=== PATIENT | male | born 1990 | race Caucasian/White ===

== ENCOUNTER 2023-03-27 22:10 | Emergency (ER) | payer BC, SELFPAY ==
[2023-03-27 22:22] VITALS: BP 127/99; PULSE 118; RESP 20; TEMP 36.8; O2SAT 94; BMI 44.2
--- NOTE | 2023-03-27 22:27 | ED.ARRPALP ---
HPI - Arrhythmia/Palpitations General Chief Complaint: Arrhythmia/Palpitations Stated Complaint: heart palpitations Time Seen by Provider: 03/27/23 22:26 History of Present Illness HPI narrative: Patient is a 32-year-old gentleman with history of PVCs tachycardia and anxiety who has missed several days of his metoprolol who comes in today with pulse for approximately 07/12/2024. He other than the anxiety and palpitations has no other significant symptoms such as chest pain shortness a breath orthopnea no PND no nausea no vomiting no weakness. He is apparently out of his metoprolol. No other problems have been noted patient's symptoms and present for the last 12 hours. Related Data Allergies Allergy/AdvReac Type Severity Reaction Status Date / Time No Known Allergies Allergy Verified 03/27/23 22:29 Review of Systems Status of ROS: Reports: 10 or more systems reviewed and unremarkable except as noted in History and below Exam Narrative: Exam Narrative: EXAM GENERAL: Patient appears anxious EYES: No scleral icterus. ENT: Tympanic membranes and oropharynx normal. THYROID: no thyroid nodules or thyromegaly. LYMPH: No supraclavicular or cervical lymphadenopathy. SKIN: Visible skin seen during exam normal or with benign process only. EXT: No dependent lower extremity pedal edema. HEART: Regular rate and rhythm with tachycardia noted. LUNGS: Clear to auscultation bilaterally with no crackles or wheezes. ABD: Soft, non tender, non distended. PSYCH: Good eye contact, speech is not pressured. Const: Vital Signs, click to edit/add: Vital Signs - 24 hr 03/27/23 22:22 03/27/23 22:55 Temperature 98.2 F Pulse Rate 98 Pulse Rate [Pulse Oximeter] 118 H Respiratory Rate 20 [facility] 127/99 H Pulse Oximetry 94 91 Oxygen Delivery Me thod Room Air Course Course ED Course: Patient seen examined. IV was placed CBC basic metabolic panel troponin D-dimer obtained. EKG upon my review shows sinus tachycardia. Patient given 5 mg of IV Lopressor. Vital Signs Vital signs: Initial Vital Signs Temperature 98.2 F 03/27/23 22:22 Temperature Source Temporal Artery Scan 03/27/23 22:22 Pulse Rate 118 H 03/27/23 22:22 Respiratory Rate 20 03/27/23 22:22 Blood Pressure 127/99 H 03/27/23 22:22 Blood Pressure Mean 108 H 03/27/23 22:22 Blood Pressure Position High-Fowlers 03/27/23 22:22 Pulse Oximetry 94 03/27/23 22:22 Oxygen Delivery Method Room Air 03/27/23 22:22 Vital Signs Temperature 98.2 F 03/27/23 22:22 Pulse Rate 118 H 03/27/23 22:22 Respiratory Rate 20 03/27/23 22:22 Blood Pressure 127/99 H 03/27/23 22:22 Pulse Oximetry 94 03/27/23 22:22 Oxygen Delivery Method Room Air 03/27/23 22:22 Temperature 98.2 F 03/27/23 22:22 Pulse Rate 98 03/27/23 22:55 Respiratory Rate 20 03/27/23 22:22 Blood Pressure 127/99 H 03/27/23 22:22 Pulse Oximetry 91 03/27/23 22:55 Oxygen Delivery Method Room Air 03/27/23 22:22 MDM - Arrhythmia/Palpitations MDM Narrative Medical decision making narrative: Patient is a 32-year-old gentleman who missed his metoprolol dose last 2 days comes in with mild tachycardia. I did order appropriate workup which patient declines. I did given 5 mg of Lopressor and his symptoms resolved. He does not have access to metoprolol till tomorrow and I did give him 12.5 mg of oral metoprolol in addition to the IV Lopressor. He is discharged in per his request without further evaluation or treatment to continue his outpatient regiment and follow-up with his primary physician as needed. Differential Diagnosis Differential diagnosis: Likely palpitations, anxiety, sinus tachycardia, artial fibrillation, artial flutter, ventricular premature beats, supraventricular tachycardia, ventricular tachycardia and WPW Discharge Plan Discharge Clinical Impression: Sinus tachycardia Patient Disposition: Home, Self-Care Condition: Stable Instructions: Tachycardia (ED) Additional Instructions: Continue current medications Follow up with your doctor as needed Activity Level: No Restrictions Discharge Diet: Regular Follow Up/Referrals: Carmelita Lawrence PA-C [Primary Care Provider] - Stand Alone Forms: [employer] Info Instructions
[2023-03-27] MEDS: METOPROLOL TARTRATE 1 MG/ML inj 5 MG IVP (22:41)
[2023-03-27 22:55] VITALS: PULSE 98; O2SAT 91
[2023-03-27 23:00] VITALS: PULSE 92; O2SAT 94
--- NOTE | 2023-03-27 23:00 | ED.NURSE ---
headline writer did education on why blood work is done and why it is important to pt care, pt declined blood work. notified, no further orders at this time
[2023-03-27 23:02] VITALS: BP 123/65; PULSE 92; O2SAT 95
[2023-03-27] MEDS: METOPROLOL TARTRATE 25 MG TABLET 12.5 MG PO (23:04)
== END 2023-03-27 23:18 | disposition home or self-care (01) ==
PROVIDERS: Emergency Provider Internal Medicine; PCP Student in an Organized Health Care Education/Training Program
DX: R00.0 Tachycardia, unspecified (principal)
CPT/HCPCS: 80048; 85025; 85379; 93005; 96374; 99283; 99284; A9270